=== PATIENT | female | born 1960 | race Caucasian/White ===

== ENCOUNTER → 2016-12-18 | Outpatient (CLI) | payer BC ==
[~2016-12-18] VITALS: Ht 175.3 cm; Wt 76.2 kg
[~2016-12-18] MED LIST: ASENDIN25 MG PO; ATORVASTATIN CA40 MG PO; CLIMARA1 EACH TD; Cymbalta PO; DOLOPHINE HCL5 MG PO; IMITREX100 MG PO; Imitrex PO; LOPRESSOR25 MG PO; METHADONE10 MG PO; METHADONE5 MG PO; MULTIVITAMIN1 EAC2 PO; Methadone HCl PO; Methadone PO; NITROSTAT0.4 MG SL; PRILOSEC OTC20 MG PO; PROMETHAZINE HC25 M1 PO; QUESTRAN PACKET4 GM PO; QUESTRAN4 GM/PACKE PO; THROAT DROPS6 MG MM; VIVELLE-DOT0.05 MG TD; [UNRECOGNIZED DRUG - OTHER] TP
== END | disposition home or self-care (01) ==
LOC: AMB 07:52
DX: K83.8 Other specified diseases of biliary tract (principal); K83.4 Spasm of sphincter of Oddi; R10.11 Right upper quadrant pain; R74.8 Abnormal levels of other serum enzymes; Z90.49 Acquired absence of other specified parts of digestive tract; K21.9 Gastro-esophageal reflux disease without esophagitis; I10 Essential (primary) hypertension; Z82.49 Family history of ischemic heart disease and other diseases of the circulatory system; Z82.61 Family history of arthritis; Z80.6 Family history of leukemia; Z88.5 Allergy status to narcotic agent; Z88.6 Allergy status to analgesic agent; Z88.8 Allergy status to other drugs, medicaments and biological substances
CPT/HCPCS: 74328; 87081; C1726; C1757; C1769; C2617; J1100; J2710

== ENCOUNTER 2016-12-19 06:30 | Inpatient (IN) | payer BC ==
[~2016-12-19] VITALS: Ht 175.3 cm; Wt 79.2 kg
[~2016-12-19 06:30] MED LIST changes: -METHADONE10 MG PO; -METHADONE5 MG PO; -VIVELLE-DOT0.05 MG TD
[2016-12-19 07:05] LABS: HEMATOCRIT 39.2 % (36.0-46.0); MCH 29.3 PG (29.0-34.0); MCHC 34.2 G/DL (30.0-36.0); MCV 85.8 FL (83-99); PLATELET COUNT 232 K/uL (156-360); RBC DIS.WIDTH-CV 11.9 % (11.8-14.6); RBC DIS.WIDTH-SD 36.9 % (39-53); RED BLOOD COUNT 4.57 M/uL (3.80-5.20); WHITE BLOOD COUNT 14.6 K/uL (4.1-10.2)
[2016-12-19] MEDS ORDERED: METHADONE10 MG PO (07:28)
[2016-12-19 07:39] LABS: ANION GAP 11 MEQ/L (2-14); CHLORIDE 105 MEQ/L (99-109); POTASSIUM 4.4 MEQ/L (3.7-5.4); SAMPLE HEMOLYSIS CHECK 0; SAMPLE ICTERIC CHECK 0; SAMPLE LIPEMIA CHECK 0; SODIUM 141 MEQ/L (136-147); TOTAL BILIRUBIN 0.5 MG/DL (0.0-1.0)
[2016-12-19 07:45] LABS: ALKALINE PHOSPHATASE 165 IU/L (3-129); GFR ESTIMATE (CALCULATED) > 59 mL/min/; GLUCOSE 119 mg/dL (70-99); LIPASE 200 U/L (1.0-51.0); UREA NITROGEN (BUN) 39 mg/dL (9-23)
[2016-12-19 08:07] LABS: QUANTITATIVE HCG < 4.0 MIU/ML
[2016-12-19 08:26] LABS: ADD MIUA? YES; BILIRUBIN NEGATIVE; BLOOD NEGATIVE; COLOR YELLOW ((YELLOW)); GLUCOSE (STRIP) NEGATIVE; KETONES 5; LEUKOCYTES NEGATIVE; NITRITE NEGATIVE; PROTEIN (STRIP) NEGATIVE; SPECIFIC GRAVITY 1.024 (1.000-1.030); UROBILINOGEN 0.2 MG/DL (0.2-1.0)
[2016-12-19 08:30] LABS: BACTERIA NONE SEEN /HPF; EPITHELIAL CELLS 1+ /HPF; MUCUS TRACE /LPF; RED BLOOD CELLS 0-5 /HPF (0-5); UCUL ADDED? NO; WHITE BLOOD CELLS 0-5 /HPF (0-5)
[2016-12-19] MEDS ORDERED: METHADONE5 MG PO (11:01)
[2016-12-19] MEDS ORDERED: VIVELLE-DOT0.05 MG TD (11:13)
[2016-12-19 11:42] VITALS: BP 139/71
[2016-12-19 16:00] VITALS: BP 122/59
[2016-12-19 20:00] VITALS: BP 117/66
[2016-12-20] VITALS: BP 111/65
[2016-12-20 04:00] VITALS: BP 114/65
[2016-12-20 07:15] LABS: ANION GAP 6 MEQ/L (2-14); CHLORIDE 112 MEQ/L (99-109); GFR ESTIMATE (CALCULATED) > 59 mL/min/; GLUCOSE 108 mg/dL (70-99); LIPASE 507 U/L (1.0-51.0); POTASSIUM 3.9 MEQ/L (3.7-5.4); SAMPLE HEMOLYSIS CHECK 0; SAMPLE ICTERIC CHECK 0; SAMPLE LIPEMIA CHECK 0; SODIUM 143 MEQ/L (136-147); UREA NITROGEN (BUN) 23 mg/dL (9-23)
[2016-12-20 07:19] LABS: TOTAL BILIRUBIN 0.3 MG/DL (0.0-1.0)
[2016-12-20 07:20] LABS: ALKALINE PHOSPHATASE 105 IU/L (3-129)
[2016-12-20 07:30] LABS: MCH 29.5 PG (29.0-34.0); MCHC 33.1 G/DL (30.0-36.0); MCV 89.2 FL (83-99); RBC DIS.WIDTH-CV 12.6 % (11.8-14.6)
[2016-12-20 07:54] LABS: RED BLOOD COUNT 3.25 M/uL (3.80-5.20)
[2016-12-20 08:00] VITALS: BP 129/69
[2016-12-20 09:08] LABS: MEAN PLAT.VOLUME 9.8 uM^3 (9.5-12.4)
[2016-12-20 09:22] LABS: PLATELET COUNT 150 K/uL (156-360)
[2016-12-20 10:57] VITALS: BP 116/63
[2016-12-20 15:39] VITALS: BP 130/68
[2016-12-21] VITALS: BP 120/64
[2016-12-21 07:51] LABS: HEMATOCRIT 29.3 % (36.0-46.0); MCH 29.4 PG (29.0-34.0); MCHC 32.8 G/DL (30.0-36.0); MCV 89.6 FL (83-99); MEAN PLAT.VOLUME 9.2 uM^3 (9.5-12.4); PLATELET COUNT 128 K/uL (156-360); RBC DIS.WIDTH-CV 12.3 % (11.8-14.6); RBC DIS.WIDTH-SD 39.8 % (39-53); RED BLOOD COUNT 3.27 M/uL (3.80-5.20); WHITE BLOOD COUNT 5.1 K/uL (4.1-10.2)
[2016-12-21 08:07] VITALS: BP 132/65
[2016-12-21 08:17] LABS: ANION GAP 6 MEQ/L (2-14); CHLORIDE 108 MEQ/L (99-109); GFR ESTIMATE (CALCULATED) > 59 mL/min/; GLUCOSE 116 mg/dL (70-99); LIPASE 165 U/L (1.0-51.0); POTASSIUM 3.7 MEQ/L (3.7-5.4); SAMPLE HEMOLYSIS CHECK 0; SAMPLE ICTERIC CHECK 0; SAMPLE LIPEMIA CHECK 0; SODIUM 142 MEQ/L (136-147); UREA NITROGEN (BUN) 6 mg/dL (9-23)
[2016-12-21 11:15] LABS: IRON 38 MCG/DL (35-150)
[2016-12-21 11:37] LABS: FERRITIN 115 NG/ML (10-291)
[2016-12-21 15:37] LABS: INTERNAL CONTROL VALID? YES
[2016-12-21 16:06] VITALS: BP 134/66
[2016-12-22] VITALS: BP 135/73
[2016-12-22 07:45] LABS: ANION GAP 11 MEQ/L (2-14); CHLORIDE 105 MEQ/L (99-109); GFR ESTIMATE (CALCULATED) > 59 mL/min/; GLUCOSE 108 mg/dL (70-99); POTASSIUM 3.3 MEQ/L (3.7-5.4); SAMPLE HEMOLYSIS CHECK 0; SAMPLE ICTERIC CHECK 0; SAMPLE LIPEMIA CHECK 0; SODIUM 142 MEQ/L (136-147); UREA NITROGEN (BUN) 6 mg/dL (9-23)
[2016-12-22 07:52] LABS: HEMATOCRIT 29.9 % (36.0-46.0); MCH 29.5 PG (29.0-34.0); MCHC 34.1 G/DL (30.0-36.0); MCV 86.4 FL (83-99); RBC DIS.WIDTH-CV 12.2 % (11.8-14.6); RBC DIS.WIDTH-SD 38.2 % (39-53); RED BLOOD COUNT 3.46 M/uL (3.80-5.20)
[2016-12-22 07:56] LABS: MEAN PLAT.VOLUME 9.3 uM^3 (9.5-12.4)
[2016-12-22 07:59] VITALS: BP 146/73
[2016-12-22 08:04] LABS: PLATELET COUNT 174 K/uL (156-360)
[2016-12-22 15:26] LABS: C DIFF TOXIN NEGATIVE (NEGATIVE)
[2016-12-22 15:32] LABS: PROBE CHECK PASS; SPECIMEN PROCESSING CONTROL PASS
[2016-12-22 15:45] VITALS: BP 140/76
[2016-12-23 00:10] VITALS: BP 133/67
[2016-12-23 06:39] LABS: HEMATOCRIT 28.9 % (36.0-46.0); MCH 29.5 PG (29.0-34.0); MCHC 33.9 G/DL (30.0-36.0); MEAN PLAT.VOLUME 9.5 uM^3 (9.5-12.4); PLATELET COUNT 194 K/uL (156-360); RBC DIS.WIDTH-CV 12.3 % (11.8-14.6); RBC DIS.WIDTH-SD 38.5 % (39-53); RED BLOOD COUNT 3.32 M/uL (3.80-5.20); WHITE BLOOD COUNT 3.9 K/uL (4.1-10.2)
[2016-12-23 07:05] LABS: ANION GAP 7 MEQ/L (2-14); CHLORIDE 106 MEQ/L (99-109); GFR ESTIMATE (CALCULATED) > 59 mL/min/; GLUCOSE 95 mg/dL (70-99); LIPASE 40 U/L (1.0-51.0); SAMPLE HEMOLYSIS CHECK 0; SAMPLE ICTERIC CHECK 0; SAMPLE LIPEMIA CHECK 0; SODIUM 141 MEQ/L (136-147); UREA NITROGEN (BUN) 7 mg/dL (9-23)
[2016-12-23 08:30] VITALS: BP 140/69
== END 2016-12-23 15:48 | disposition home or self-care (01) | DRG 393 ==
LOC: EME → EDBD 06:30 → EDOF 10:34 → 5WEST 10:34 → 5SOUTH 12-20 08:17
PROVIDERS: Emergency Medicine; Internal Medicine; Internal Medicine Gastroenterology; Nurse Practitioner Adult Health; Nurse Practitioner Family; Physician Assistant Medical
DX: K91.89 Other postprocedural complications and disorders of digestive system (principal); K85.80 Other acute pancreatitis without necrosis or infection; K92.1 Melena; D64.9 Anemia, unspecified; K83.9 Disease of biliary tract, unspecified; K86.89 Other specified diseases of pancreas; K59.00 Constipation, unspecified; E86.0 Dehydration; R19.7 Diarrhea, unspecified; Z88.5 Allergy status to narcotic agent; Z88.6 Allergy status to analgesic agent; Z82.49 Family history of ischemic heart disease and other diseases of the circulatory system; Z80.6 Family history of leukemia
CPT/HCPCS: 74022; 80048; 80053; 80076; 81003; 82272; 82728; 83540; 83690; 84466; 84702; 85027; 87040; 87493; 99281; 99285; C9113; G0378; J0780; J1170; J1200; J1650; J2765; J3010; J7030; J7042; S0028

== ENCOUNTER → 2017-04-22 | Outpatient (CLI) | payer BC ==
[~2017-04-22] MED LIST changes: +METHADONE10 MG PO; +METHADONE5 MG PO; +VIVELLE-DOT0.05 MG TD
== END | disposition home or self-care (01) ==
LOC: CDC 04-21 15:30
DX: G56.01 Carpal tunnel syndrome, right upper limb (principal); G56.21 Lesion of ulnar nerve, right upper limb; M25.531 Pain in right wrist
CPT/HCPCS: 93000